=== PATIENT | female | born 1970 | race Two or more races ===

== ENCOUNTER 2024-03-12 18:02 | Inpatient (IN) | payer MEDICAID ==
[~2024-03-12] VITALS: Ht 162.6 cm; Wt 63.2 kg
[2024-03-12 09:40] VITALS: BP 144/86; PULSE 54; RESP 18; TEMP 97.7; O2SAT 96
[2024-03-12 21:04] VITALS: BP 144/86; PULSE 54; RESP 18; TEMP 97.7; O2SAT 96
[2024-03-12 21:40] VITALS: BP 144/86; PULSE 54; RESP 18; TEMP 97.7; O2SAT 96
[2024-03-12] MEDS ORDERED: NITROGLYCERIN 0.4 MG SL TAB SL PRN (23:15)
[2024-03-12] MEDS ORDERED: MORPHINE SULFATE INJ 2 MG/ml SYRG IV PRN (23:15)
[2024-03-13] VITALS (11 sets, daily range): BP systolic 102–133; BP diastolic 59–79; PULSE 57–80; RESP 16–20; TEMP 37; O2SAT 96–100
[2024-03-13] MEDS ORDERED: HEPARIN DRIP/D5W 100UNITS/ML 250 ML IV SCH
[2024-03-13 00:30] LABS: Basophils # (auto) 0 10 ^3/uL (0-0.2); Basophils % (auto) 0.6 % (0.0-2.0); Eosinophils # (auto) 0.1 10 ^3/uL (0-0.8); Eosinophils % (auto) 2.1 % (0.0-7.0); Hematocrit 36.8 % (36.0-46.0); Hemoglobin 12.5 g/dL (12.2-16.2); Lymphocytes # (auto) 2.5 10 ^3/uL (0.4-5.4); Lymphocytes % (auto) 40.2 % (10.0-50.0); Mean Corpuscular Hemoglobin 31.1 pg (28.0-32.0); Mean Corpuscular Hgb Conc. 33.8 g/dL (32.0-36.0); Mean Corpuscular Volume 91.8 fL (80.0-100.0); Monocytes # (auto) 0.5 10 ^3/uL (0-1.3); Monocytes % (auto) 7.7 % (0.0-12.0); Neutrophils # (auto) 3.1 10 ^3/uL (1.6-8.6); Neutrophils % (auto) 49.4 % (37.0-80.0); Nucleated Red Blood Cells % 0.1 %; Platelet Count (auto) 290 10^3/uL (140-450); Red Blood Cells 4.01 10^6/uL (4.0-5.20); Red Cell Distribution Width 14.2 % (11.8-14.3); White Blood Cell 6.2 10^3/uL (4.4-10.8)
[2024-03-13] MEDS: ATORVASTATIN 20 MG TAB PO ONE (00:42)
[2024-03-13 00:45] LABS: INR 0.99 (0.9-1.15); Partial Thromboplastin Time 28.2 SEC (24.5-34.5); Prothrombin Time 10.5 sec (9.3-11.8)
[2024-03-13] MEDS: HEPARIN DRIP/D5W 100UNITS/ML 250 ML IV SCH (01:29)
[2024-03-13 03:17] LABS: Alanine Aminotransferase 22 U/L (7-40); Albumin 4.9 g/dL (3.2-4.8); Alkaline Phosphatase 89 U/L (46-116); Anion Gap 11 (5-15); Aspartate Aminotransferase 27 U/L (13-40); BUN/Creatinine Ratio 10.1 (10.0-20.0); Bilirubin, Total 0.4 mg/dL (0.2-1.0); Blood Urea Nitrogen 8 mg/dL (9-23); Carbon Dioxide 24 mmol/L (20-31); Chloride 107 mmol/L (98-107); Glucose 100 mg/dL (74-106); Sodium 142 mmol/L (136-145); Total Protein 8.2 g/dL (5.7-8.2)
[2024-03-13 07:26] LABS: Basophils # (auto) 0.1 10 ^3/uL (0-0.2); Basophils % (auto) 0.9 % (0.0-2.0); Eosinophils # (auto) 0.2 10 ^3/uL (0-0.8); Eosinophils % (auto) 2.5 % (0.0-7.0); Hematocrit 34.9 % (36.0-46.0); Hemoglobin 12.1 g/dL (12.2-16.2); Lymphocytes # (auto) 2.6 10 ^3/uL (0.4-5.4); Lymphocytes % (auto) 43.2 % (10.0-50.0); Mean Corpuscular Hemoglobin 31.6 pg (28.0-32.0); Mean Corpuscular Hgb Conc. 34.6 g/dL (32.0-36.0); Mean Corpuscular Volume 91.4 fL (80.0-100.0); Monocytes # (auto) 0.5 10 ^3/uL (0-1.3); Monocytes % (auto) 8.5 % (0.0-12.0); Neutrophils # (auto) 2.8 10 ^3/uL (1.6-8.6); Neutrophils % (auto) 44.9 % (37.0-80.0); Nucleated Red Blood Cells % 0.2 %; Platelet Count (auto) 255 10^3/uL (140-450); Red Blood Cells 3.82 10^6/uL (4.0-5.20); Red Cell Distribution Width 14.2 % (11.8-14.3); White Blood Cell 6.1 10^3/uL (4.4-10.8)
[2024-03-13 07:40] LABS: Anion Gap 6 (5-15); Carbon Dioxide 29 mmol/L (20-31); Chloride 107 mmol/L (98-107); Sodium 142 mmol/L (136-145)
[2024-03-13 07:46] LABS: Glucose 86 mg/dL (74-106)
[2024-03-13 07:47] LABS: BUN/Creatinine Ratio 13.3 (10.0-20.0); Blood Urea Nitrogen 10 mg/dL (9-23)
[2024-03-13 07:56] LABS: INR 1.05 (0.9-1.15); Partial Thromboplastin Time 56.4 SEC (24.5-34.5); Prothrombin Time 11.1 sec (9.3-11.8)
[2024-03-13 08:07] LABS: Urine Bacteria None Seen /hpf (None Seen)
[2024-03-13 08:14] LABS: LDL Cholesterol 106 mg/dL (< 100); Magnesium 2.1 mg/dL (1.6-2.6); Triglycerides 69 mg/dL (< 150)
[2024-03-13 08:16] LABS: Cholesterol 170 mg/dL (< 200); HDL Cholesterol 54 mg/dL (40-59); Phosphorus 4.2 mg/dL (2.4-5.1)
[2024-03-13 08:35] LABS: Urine Blood 1+ /uL (Negative); Urine Clarity Clear (Clear); Urine Color Light-Yellow (Yellow); Urine Protein, UAD Negative (Negative); Urine Specific Gravity 1.014 (1.001-1.035); Urine Urobilinogen Normal (Negative); Urine WBC 7 /hpf (0 - 5)
[2024-03-13 09:02] LABS: Amphetamine Screen, Urine Neg (NEGATIVE); Barbiturate Scree,Urine Neg (NEGATIVE); Benzodiazephine Screen, Urine Neg (NEGATIVE); Cannabinoid Screen, Urine Neg (NEGATIVE); Cocaine Screen, Urine Neg (NEGATIVE); Opiate Scree,Urine Neg (NEGATIVE); Phencyclidine Screen, Urine Neg (NEGATIVE)
[2024-03-13] MEDS: IODIXANOL 320MG/ML 100ML BTL IV ONE (09:37)
[2024-03-13] MEDS: HEPARIN IN NS 1000Units/500mL 1,500 ML ONE (09:37)
[2024-03-13] MEDS: LIDOCAINE 2%HCL (LOCAL ANESTH.) INJ 20ML MDV ONE (10:07)
[2024-03-13] MEDS: VERAPAMIL 2.5MG/ML INJ 2ML VIAL IV ONE (10:07)
[2024-03-13] MEDS: SODIUM CHL 0.9% 0 ML ONE (10:07)
[2024-03-13] MEDS: ANGIOMAX 250 MG VIAL IV ONE (10:07)
[2024-03-13] MEDS: fentaNYL CITRATE 100 MCG/2 ML VL ONE (10:08)
[2024-03-13] MEDS: MIDAZOLAM HCL 2MG/2ML 2ml VIAL (1mg/ml) ONE (10:08)
[2024-03-13 11:15] LABS: Free T3 2.99 pg/mL (2.3-4.2)
[2024-03-13 11:16] LABS: Free T4 (Free Thyroxine) 1.05 ng/dL (0.89-1.76)
[2024-03-13] MEDS: ASPirin 81 mg TAB PO SCH (12:06)
[2024-03-13] MEDS: ACETAMINOPHEN 500 MG TAB PO PRN (12:15)
[2024-03-13] MEDS ORDERED: NITR-87 PO (17:33)
[2024-03-13] MEDS ORDERED: METO25TA93 PO (17:33)
[2024-03-13] MEDS: cefTRIAXone 1GM/50ML D5W 50 ML IV ONE ×2 (18:02→18:04)
[2024-03-13] MEDS ORDERED: ATORVASTATIN 20 MG TAB PO SCH (22:00)
== END 2024-03-13 19:07 | disposition home or self-care (01) | DRG 190 ==
LOC: TELE 21:40 → WEST WING 21:50 → TELE-WESTW 03-13 03:58
PROVIDERS: ADMIT Internal Medicine; ATTEND Internal Medicine
PROC: 4A023N7 Measurement of Cardiac Sampling and Pressure, Left Heart, Percutaneous Approach (ICD-10-PCS; principal; 2024-03-13)
PROC: B211YZZ Fluoroscopy of Multiple Coronary Arteries using Other Contrast (ICD-10-PCS; 2024-03-13)
DX: I21.4 Non-ST elevation (NSTEMI) myocardial infarction (principal); I11.9 Hypertensive heart disease without heart failure; E03.9 Hypothyroidism, unspecified; I21.B Myocardial infarction with coronary microvascular dysfunction; G89.29 Other chronic pain; E78.5 Hyperlipidemia, unspecified; N30.00 Acute cystitis without hematuria; Z80.3 Family history of malignant neoplasm of breast; Z82.5 Family history of asthma and other chronic lower respiratory diseases; Z98.82 Breast implant status
CPT/HCPCS: 36415; 71045; 80048; 80053; 80061; 80307; 81001; 82306; 82607; 82746; 83036; 83735; 83880; 84100; 84439; 84443; 84481; 84484; 85025; 85610; 85730; 93005; 93306; 93458; 99152; G0378; J2250; Q9967